=== PATIENT | female | born 1950 | race Caucasian/White ===

== ENCOUNTER 2016-11-09 06:58 | Day surgery (SDC) | payer MEDICARE ==
[2016-11-01 12:02] VITALS: BMI 23.0
[2016-11-09] MEDS ORDERED: Propofol 10 mg/ml Inj (20 ML) ONE (08:40)
[2016-11-09] MEDS ORDERED: Sodium Chloride 0.9% 1,000 ML IV SCH (09:15)
[2016-11-09 09:43] VITALS: TEMP 97.8
[2016-11-09 10:02] VITALS: BP 121/71; PULSE 58; RESP 18; O2SAT 100
== END 2016-11-09 10:35 | disposition home or self-care (01) ==
LOC: ENDO 06:58
PROVIDERS: ATTEND Internal Medicine
DX: K63.5 Polyp of colon (principal); K57.30 Diverticulosis of large intestine without perforation or abscess without bleeding; K64.8 Other hemorrhoids
CPT/HCPCS: 45380; 88305; J2704; J7040 ×2

== ENCOUNTER 2017-12-01 12:17 | Emergency (ER) | payer MEDICARE, OTHER ==
[2017-12-01 12:33] VITALS: BMI 22.6
[2017-12-01 12:44] VITALS: BP 122/70; PULSE 82; RESP 18; TEMP 98; O2SAT 95
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
== END 2017-12-01 14:26 | disposition home or self-care (01) ==
LOC: ED 12:17
DX: S93.402A Sprain of unspecified ligament of left ankle, initial encounter (principal); S73.102A Unspecified sprain of left hip, initial encounter; V03.90XA Pedestrian on foot injured in collision with car, pick-up truck or van, unspecified whether traffic or nontraffic accident, initial encounter; Y92.410 Unspecified street and highway as the place of occurrence of the external cause; E03.9 Hypothyroidism, unspecified